=== PATIENT | female | born 1980 | race Caucasian/White ===

== ENCOUNTER 2020-07-04 20:57 | Emergency (ER) | payer BC ==
[2020-07-04 21:15] VITALS: BP 110/63
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
[2020-07-04] MEDS ORDERED: LIDOCAINE 2% INJ (20 MG/ML) 20 ML MDV INJ ONE (22:20)
[2020-07-04] MEDS ORDERED: DIPH/PERTUSS(ACELL)/TETANUS VAC/PF 0.5 ML SYR (>=10YO) IM ONE (22:20)
[2020-07-04] MEDS ORDERED: DIAZEPAM 5 MG TABLET PO ONE (22:20)
[2020-07-04] MEDS ORDERED: AMOXICILLIN TR/POT CLAVULANATE 875-125 MG TAB PO ONE (22:21)
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
[2020-07-05] MEDS ORDERED: HYDROCODONE/ACETAMINOPHEN 5-325 MG (6 TAB/ER DISP) PO PRN (00:31)
== END 2020-07-05 00:50 | disposition home or self-care (01) ==
LOC: ER 20:57
DX: S61.422A Laceration with foreign body of left hand, initial encounter (principal); S61.221A Laceration with foreign body of left index finger without damage to nail, initial encounter; S61.220A Laceration with foreign body of right index finger without damage to nail, initial encounter; S61.222A Laceration with foreign body of right middle finger without damage to nail, initial encounter; S61.224A Laceration with foreign body of right ring finger without damage to nail, initial encounter; S61.421A Laceration with foreign body of right hand, initial encounter; W01.198A Fall on same level from slipping, tripping and stumbling with subsequent striking against other object, initial encounter; Y93.H9 Activity, other involving exterior property and land maintenance, building and construction; Z23 Encounter for immunization; Z88.2 Allergy status to sulfonamides
CPT/HCPCS: 99284; 90471; 73130; 90715; 12005; J3490 ×2